=== PATIENT | female | born 1930 | race Caucasian/White ===

== ENCOUNTER 2017-12-09 13:17 | Emergency (ER) | payer MEDICARE, OTHER ==
[~2017-12-09] VITALS: Ht 157.5 cm; Wt 66.7 kg
[2017-12-09 14:18] VITALS: BP 158/78
== END 2017-12-09 14:23 | disposition home or self-care (01) ==
LOC: ER 13:19 → EDBD 13:19 → ER 14:23
DX: I10 Essential (primary) hypertension (principal)
CPT/HCPCS: 99281